=== PATIENT | male | born 1930 | race Caucasian/White ===

== ENCOUNTER 2018-07-23 22:39 | Inpatient (IN) | payer MEDICARE ==
[~2018-07-23] VITALS: Ht 175.3 cm; Wt 64.0 kg
--- NOTE | 2018-07-23 23:45 | NUR ---
DAUGHTERS AT BEDSIDE. PT AROUSES ON TACTILE STIMULATION. BS CHECKED 117. DR NOTIFIED.. OK TO GIVE SANDWICH. PT GIVEN SANDWICH AND MILK.
[2018-07-23 23:54] LABS: HEMATOCRIT 31.9 % (39.0-50.0); HEMOGLOBIN 10.1 g/dl (14.0-18.0); IMMATURE GRANULOCYTES 0.3 % (0.0-5.0); MEAN CELL VOLUME 98.2 fL CALC (80.0-100.0); MEAN CORPUSCULAR HGB 31.1 pG CALC (26.0-32.0); MEAN CORPUSCULAR HGB CONC 31.7 g/L CALC (32.0-36.0); NEUT# 7.67 thou/uL (1.82-7.42); RED BLOOD COUNT 3.25 mill/uL (4.70-6.10); RED CELL DISTRI WIDTH 14.1 % (11.5-15.5)
--- NOTE | 2018-07-23 23:55 | NUR ---
TO CT VIA STRETCHER
--- NOTE | 2018-07-23 23:55 | NUR ---
PT HAS EATEN 1/2 OF SANDWICH AND SOME MILK
[2018-07-24] VITALS (11 sets, daily range): BP systolic 97–159; BP diastolic 49–73
[2018-07-24 00:04] LABS: ALBUMIN 3.7 g/dL (3.2-5.0); BILIRUBIN, TOTAL 0.3 mg/dL (0.0-1.4); CREATININE 1.8 mg/dL (0.7-1.3); POTASSIUM 4.4 mmol/l (3.5-5.1); TOTAL PROTEIN 6.6 g/dL (6.3-8.2)
--- NOTE | 2018-07-24 00:14 | NUR ---
RETURNED FROM CT VIA STRETCHER
[2018-07-24] MEDS ORDERED: QUETIAPINE FUMA25 MG PO (00:22)
[2018-07-24] MEDS ORDERED: DONEPEZIL5 MG PO (00:23)
[2018-07-24] MEDS ORDERED: PRANDIN1 MG PO (00:23)
[2018-07-24] MEDS ORDERED: ATENOLOL25 MG PO (00:24)
[2018-07-24] MEDS ORDERED: SIMVASTATIN20 MG PO (00:25)
[2018-07-24] MEDS ORDERED: PIOGLITAZONE HC15 MG PO (00:25)
[2018-07-24] MEDS ORDERED: PANTOPRAZOLE SO40 MG PO (00:28)
[2018-07-24] MEDS ORDERED: BAYER ASPIRIN E81 MG PO (00:29)
[2018-07-24] MEDS ORDERED: NOVOLOG MIX SC (00:36)
[2018-07-24] MEDS ORDERED: NOVOLOG MIX100 U/ML SC (00:38)
[2018-07-24] MEDS ORDERED: PIOGLITAZONE HC30 MG PO (00:49)
--- NOTE | 2018-07-24 01:01 | NUR ---
BS RECHECK 65. NOTIFIED. WILL ADMIT PT. WILL ORDER D50
--- NOTE | 2018-07-24 01:45 | NUR ---
PT C/O LEFT KNEE PAIN. NO OBVIOUS DEFORMITY. HX OF KNEE REPLACEMENT [address] NOTIFIED. XRAY ORDER AND TYLENOL ORDERED.
--- NOTE | 2018-07-24 01:53 | NUR ---
URINE SENT TO LAB. PT MORE AROSEABLE.
[2018-07-24 01:56] LABS: URINE BILIRUBIN - DIPSTICK NEGATIVE (NEGATIVE); URINE BLOOD DIPSTICK NEGATIVE (NEGATIVE); URINE COLOR YELLOW; URINE GLUCOSE - DIPSTICK NEGATIVE (NEGATIVE); URINE KETONE NEGATIVE (NEGATIVE); URINE LEUK ESTERASE NEGATIVE (NEGATIVE); URINE NITRITE - DIPSTICK NEGATIVE (Negative); URINE PROTEIN - DIPSTICK 100 mg/dL (NEG-TRACE); URINE UROBILINOGEN - DIPSTICK 0.2 E.U./dL (0.2)
--- NOTE | 2018-07-24 02:03 | NUR ---
PORTABLE XRAY AT BEDSIDE
--- NOTE | 2018-07-24 02:21 | NUR ---
PT INCONT OF URINE. CHANGED BY DAUGHTER.
[2018-07-24 02:27] LABS: URINE BACTERIA FEW hpf; URINE WBC 0-2 WBC/hpf (0-5); URINE YEAST RARE hpf
--- NOTE | 2018-07-24 02:40 | NUR ---
PT POSITIONED ON RIGHT SIDE AND PERICREAM APPLIED TO BUTTOCKS. PT AROUSES EASILY
--- NOTE | 2018-07-24 03:18 | NUR ---
BS 145. NOTIFIED.
--- NOTE | 2018-07-24 03:41 | NUR ---
REPORT CALLED TO [place]/NURSE ON MED SURG.
--- NOTE | 2018-07-24 03:55 | NUR ---
SECOND FLOOR OPERATOR NOTIFIED OF CONCERN FOR HOURLY ACCUCKS
--- NOTE | 2018-07-24 04:15 | NUR ---
ATTEMPTED TO CALL REPORT TO ICU. SBAR RESENT
--- NOTE | 2018-07-24 04:30 | NUR ---
PT VOIDED IN URINAL WITH ASSIST. DIAPER CHANGED FOR SMALL AMT OF BROWN SMEAR. CLEANSED. DIAPER CREAM RE-APPLIED.
--- NOTE | 2018-07-24 04:51 | NUR ---
REPORT TO WYATT
--- NOTE | 2018-07-24 05:00 | NUR ---
BS 127.
--- NOTE | 2018-07-24 05:15 | NUR ---
TO ICU VIA STRETCHER. PT IS ALERT BUT DIORIENTED. P.WYakelin. NAD. VSS. BELONGINGS AND SHEETS TO ICU IN BAG.
--- NOTE | 2018-07-24 05:25 | NUR ---
PT. ARRIVES VIA STRETCHER FROM ER. ASSISTED WITH URINAL, BUT PT. UNABLE TO VOID AT THIS TIME. INTRODUCED TO SELF. PT. ORIENTED TO PERSON ONLY, WHICH IS NORMAL FOR HIM. PROVIDED WITH CALL LIGHT AND INSTRUCTIONS. RESPS EVEN AND UNLABORED. MOVED OVER FROM ER STRETCHER TO ICU BED VIA 3 NURSE COMPLETE ASSIST TRANSFER. VSS. REDNESS NOTED TO BUTTOCKS BILATERALLY. PATIENT IN NO DISTRESS. CALL LIGHT PLACED WITHIN REACH. LUNGS CTA.
--- NOTE | 2018-07-24 07:00 | NUR ---
RECIEVED REPORT FROM AMBER SCHNEIDER. ASSUMED PT CARE.
--- NOTE | 2018-07-24 07:30 | NUR ---
PT ALERT TO SELF, ABLE TO MAKE NEEDS KNOWN. PT DOES NOT UTILIZE CALL LIGHT AND NEEDS REORIENTED FREQ. PT SR ON TELEMETRY. RESPIRATIONS EVEN/UNLABORED, LS CLEAR THROUGHOUT. PT INC OF URINE, BED BATH AND LINEN CHANGE DONE. BARRIER CREAM APPLIED TO REDDENED AREAS ON BUTTOCKS.BRIEF IN PLACE WITH URINAL AT BEDSIDE. IV SITE TO LFA/SL. FLUSHED WITHOUT DIFFICULTY, NO S/S OF REDNESS OR INFILTRATION NOTED. PT BS 145, NO COVERAGE GIVEN. WILL MONITOR.
--- NOTE | 2018-07-24 08:00 | NUR ---
DIETARY ON UNIT, BREAKFAST TRAY SET UP.
--- NOTE | 2018-07-24 08:15 | NUR ---
FAMILY CALLED , AFTER VERIFYING CODE, UPDATE GIVEN.
--- NOTE | 2018-07-24 09:30 | NUR ---
PT ASSISTED WITH BSC AND URINAL. PERICARE GIVEN. CALL LIGHT IN REACH, STAFF MUST ANTICIPATE NEEDS. WILL MONITOR.
--- NOTE | 2018-07-24 11:02 | NUR ---
PT RESTING IN BED, COMPLAINING OF LEFT KNEE PAIN. NOTIFIED NICOLAS VELÁZQUEZ. NEW ORDERS RECIEVED.
--- NOTE | 2018-07-24 11:49 | NUR ---
ASSISTED PT WITH URINAL, TOLERATED WELL, CALL GARCIA WITHIN REACH.
--- NOTE | 2018-07-24 12:46 | NUR ---
PT ASSISTED TO BSC, SMALL BM. PT VERY RED ON BILAT BUTTOCKS, GOOD CHRISTINE CARE GIVEN. PT TOLERATED WELL. BARRIER CREAM APPLIED, PT PLACE ON RIGHT SIDE TO OFFLOAD AREA. WILL MONITOR.
--- NOTE | 2018-07-24 13:30 | NUR ---
PT ATTEMPTING TO GET OUT BED, PT REMINDED TO USE CALL LIGHT OR CALL FOR HELP. PT ASSISTED TO BSC, PT VERBALLY AGGRESIVE, STATED "YOU FUCKER, GET OUT OF HERE" TRIED REDIRECTING PT CALMLY REMINDED HE WAS IN ICU AND i COULD NOT LEAVE HIM D/T SAFETY. PT THEN STATED "YEAH, YOU DON'T LEAVE ANY BOYS ALONE, I'VE SEEN YOU SLUTING WITH ALL THE GUYS." i THEN STATED HE MUST HAVE ME CONFUSED WITH SOMEONE ELSE. HE THEN CALMED DOWN AND APOLOGIZED AND WAS AGGREEABLE TO CARE. PT ASSISTED BACK TO BED.
--- NOTE | 2018-07-24 14:10 | NUR ---
PT FOUND INC OF BOWEL. BED BATH GIVEN, LINEN CHANGED. PT AGREEABLE TO CARE.
[2018-07-24 15:20] LABS: CREATININE 1.7 mg/dL (0.7-1.3); POTASSIUM 4.8 mmol/l (3.5-5.1)
--- NOTE | 2018-07-24 15:30 | NUR ---
PT ATTEMPTING TO GET OOB, PT REORIENTED TO SAFETY CONSERNS, ASSISTED TO BSC, PT ASKED BY STAFF IF HE WOULD LIKE TO SIT UP IN [place]. PT DECLINED.BECOMING AGGITATED. PT OFFERED SNACK, PT DECLINED.THEN ASSISTED BACK TO BED.
--- NOTE | 2018-07-24 16:15 | NUR ---
PT FOUND PULLING OUT IV, PT ASKED TO STOP. PT BACAME VERY AGGRESIVE, MAKING A FIST AND SHAKING IT AT STAFF, STATED "I'LL KILL YOU BITCH". STAFF TRIED TO CALM PT, TRIED REDIRECTING. PT SUCCEEDED IN REMOVING IV, CATHETER INTACT. PT ASSISTED TO BSC, BOWEL INC NOTED AGAIN. PT CLEANED, GOOD PERICARE GIVEN.PT CONTINUED TO BE VERBALLY AGGRESIVE. PT AGAIN OFFERED SNACK, PT ACCEPTED. BED LINENS CHANGED. DR. FLORES NOTIFIED OF PT BEHAVIOR, NEW ORDERS RECIEVED, NURSING SUP. NOTIFIED. STAFF ARRANGED FOR 1 ON 1 SITTER. PT ASSISTED BACK TO BED.WILL MONITOR.
--- NOTE | 2018-07-24 17:00 | NUR ---
DIETARY ON UNIT, MEAL TRAY SET UP . PT CONTINUES TO BE VERBALLY AGGRESIVE. BED ALARM INTACT. WILL MONITOR.
--- NOTE | 2018-07-24 17:15 | NUR ---
PT ATTEMPTING TO GET OUT OF BED, ASSISTED TO BSC, THEN BACK TO BED.
--- NOTE | 2018-07-24 17:30 | NUR ---
ATTEMPTING TO GET OUT OF BED.ALARM SOUNDING. PT ASSISTED TO BSC, BACK TO BED.
--- NOTE | 2018-07-24 18:15 | NUR ---
PT RESTING IN BED, EYES CLOSED. SITTER IN PLACE. BED ALARM INTACT. WILL MONITOR.
--- NOTE | 2018-07-24 19:00 | NUR ---
REPORT FROM Roge DANIEL RN. ASSUMED PT. CARE.
--- NOTE | 2018-07-24 19:39 | NUR ---
PT. FOUND RESTING IN BED WITH EYES CLOSED AND SNORING RESPIRATIONS. RESPS EVEN AND UNLABORED. SKIN WARM AND DRY. AFEBRILE AT 98.4. SITTER AT BEDSIDE AT THIS TIME. LUNGS CTA. BOWEL SOUNDS PRESENT. PULSES INTACT THROUGHOUT. S1,S2 NOTED. SINUS RHYTHM. CALL LIGHT WITHIN REACH. WILL CONTINUE TO MONITOR.
--- NOTE | 2018-07-24 21:08 | NUR ---
BLADDER SCAN PERFORMED. >900 CC PER BLADDER SCANNER. CALLED AND NOTIFIED. DUE TO ELEVATED CREAT AND RETENTION, NEW ORDER RECEIVED FOR PROCTOR PLACEMENT. 16 F. PROCTOR PLACED, PT. SOMEWHAT UNCOOPERATIVE WITH PROCTOR PLACEMENT. 2 [address]ERSON ASS[address] REQUIRED TO PLACE PROCTOR. PROCTOR PLACED UNDER STERILE TECHNIQUE AND FASTENED TO RT. THIGH WITH LEG STRAP. PT. MEDICATED PER ORDERS.
--- NOTE | 2018-07-24 23:14 | NUR ---
PT. REMAINS RESTFUL WITH EYES CLOSED IN NO DISTRESS. RESPS REMAIN EVEN AND UNLABORED. PT. VOICES NO COMPLAINTS OR NEEDS AT THIS TIME. CALL LIGHT REMAINS WITHIN REACH. WILL CONTINUE TO ASSESS.
[2018-07-25] VITALS (10 sets, daily range): BP systolic 91–146; BP diastolic 44–63
--- NOTE | 2018-07-25 01:18 | NUR ---
PT. CONTINUES TO REST IN BED IN NO DISTRESS WITH SNORING RESPIRATIONS. CALL LIGHT REMAINS AT BEDSIDE. SITTER REMAINS AT BEDSIDE. VSS. WILL CONTINUE TO MONITOR.
--- NOTE | 2018-07-25 03:15 | NUR ---
PT. RESTING IN BED WITH EYES CLOSED. RESPS REMAIN EVEN AND UNLABORED. VSS. CALL LIGHT REMAINS WITHIN REACH.
--- NOTE | 2018-07-25 04:20 | NUR ---
LAB AT BEDSIDE FOR DRAW. PT. SOMEWHAT UNCOOPERATIVE WITH BLOOD DRAW. ONCE COMPLETE, PT. HAS CALMED DOWN. RESPS REMAIN EVEN AND UNLABORED. REMAINS AFEBRILE. VOICES NO COMPLAINTS OR NEEDS. WILL CONTINUE TO ASSESS.
[2018-07-25 05:31] LABS: HEMATOCRIT 32.8 % (39.0-50.0); HEMOGLOBIN 10.8 g/dl (14.0-18.0); MEAN CELL VOLUME 93.2 fL CALC (80.0-100.0); MEAN CORPUSCULAR HGB 30.7 pG CALC (26.0-32.0); MEAN CORPUSCULAR HGB CONC 32.9 g/L CALC (32.0-36.0); RED BLOOD COUNT 3.52 mill/uL (4.70-6.10); RED CELL DISTRI WIDTH 13.8 % (11.5-15.5)
[2018-07-25 05:48] LABS: BILIRUBIN, TOTAL 0.4 mg/dL (0.0-1.4); CREATININE 1.6 mg/dL (0.7-1.3); POTASSIUM 4.5 mmol/l (3.5-5.1); TOTAL PROTEIN 5.8 g/dL (6.3-8.2)
--- NOTE | 2018-07-25 06:00 | NUR ---
PT. CONTINUES TO BE RESTFUL WITH EYES CLOSED IN NO DISTRESS. RESPS REMAIN EVEN AND UNLAOBRED. VSS. CALL LIGHT REMAINS WITHIN REACH. WILL CONTINUE TO ASSESS.
--- NOTE | 2018-07-25 07:23 | NUR ---
pt resting in bed with eyes closed; no apparent distress noted; easily aroused; limited assessment completed at this time; pt becomes very agitated with this designer/writer/ limited assessment; pt alert to person only; confusion noted; no s.sx of pain noted; resp even and unlabored; anterior lungs noted coarse; designer/writer unable to assess post; skin color wnl; ra; moist sales team recruiter cough noted; hr reg; wk pedal pulses; no edema noted; abd soft with bs present; no bm noted per designer/writer; barrera to gravity draining clear yellow urine; cath strap intact; no iv access; designer/writer unable to assess buttocks/coccyx area; plan of care explained; again, pt uncooperative with care and very agitated; sitter at bedside for pt safety; will continue to monitor
--- NOTE | 2018-07-25 08:05 | NUR ---
awake in bed; easily aroused; offers no complaints; calm at this time; sitter present at bedside; sr on monitor; call light within reach; will continue to monitor
--- NOTE | 2018-07-25 08:43 | NUR ---
pt up out of bed per self; pt strongly encouraged to use call light for assistance; back to bed; bed alarm set for pt safety; will continue to monitor
--- NOTE | 2018-07-25 09:59 | NUR ---
Dr Castillo office called per this life underwriter; information provided to Sharifa Castillo now on phone; infomation/report given to Dr Castillo; Dr Castillo recommends barrera catheter for 2 weeks and to start Flomax; life underwriter informed pt currently receiving Flomax
--- NOTE | 2018-07-25 10:06 | NUR ---
resting in bed with eyes closed; no apparent distress noted; sr on monitor; sitter present at bedside; will continue to monitor
--- NOTE | 2018-07-25 10:40 | NUR ---
family present at bedside; field underwriter has spoken with daughter Aimee in great detail; daughter explained to this field underwriter, pt had a recent episode 5 weeks ago and was admitted to [facility] in [facility]; records to be obtained; code status clarified/ DNR formed obtained from Aimee and copy placed on chart; will continue to monitor
--- NOTE | 2018-07-25 11:04 | NUR ---
accucheck of 149; no insulin coverage required; Dr Nino present at bedside to assess pt and discuss plan of care; pt is very confused and agitated at times; barrera to gravity; per Dr Nino, pt will need placement; has spoken with sister Aimee and Caprice in great detail; will continue to monitor
--- NOTE | 2018-07-25 12:10 | NUR ---
resting in bed with eyes closed; sr on monitor; iv intact and patent; abt infusing without complication; sitter present at bedside for pt safety; call light within reach; will continue to monitor
--- NOTE | 2018-07-25 12:50 | NUR ---
tech at bedside for renal ultrasound
--- NOTE | 2018-07-25 13:42 | NUR ---
1330: Attempted to see the patient but the sitter states he is asleep and please not to wake him up. Will try again later.
--- NOTE | 2018-07-25 14:12 | NUR ---
awake in bed; continues with confusion; frequent reorientation required; sitter at bedside for safety; sr on monitor; barrera to gravity; iv intact; call light within reach; will continue to monitor
--- NOTE | 2018-07-25 14:40 | NUR ---
pt very confused and agitated; pt verbally abrusive to staff; pt pulling at and removing monitor attachments; sitter remains at bedside; pt attempting to become combative/pushing staff out of the way with arms while marketing copywriter attempting to medicate; ativan administered; pt states "That's it for you ass, you're fucking done; how about we all go to the back and deal this thing out"; staff attempting to calm pt/unsuccessful; staff x2 at bedside for pt safety;
--- NOTE | 2018-07-25 15:41 | NUR ---
PT at bedside
--- NOTE | 2018-07-25 15:56 | NUR ---
awake in bed; calm and cooperative at this time; iv intact; sr on monitor; barrera to gravity; sitter at bedside for pt safety; call light within reach; will continue to monitor
--- NOTE | 2018-07-25 16:31 | NUR ---
PATIENT SEEN FOR P.T. EVAL. EVAL AND GAIT DONE. AM-PAC 6 CLICK TEST SCORE WAS 14 WHICH INDICATES RECOMMENDED DISCHARGE TO A SNF/IRF. PATIENT'S SCORE MAY VARY DAILY BECAUSE OF HIS DEMENTIA.
--- NOTE | 2018-07-25 16:52 | NUR ---
report called to Med/Surg Maycol Sanders RN
--- NOTE | 2018-07-25 17:30 | NUR ---
pt transferred to med surg 281 via wc in stable condition; bedside report given to Maycol Sanders RN; sitter at bedside
--- NOTE | 2018-07-25 17:35 | NUR ---
PT CAME FROM ICU VIA WHEELCHAIR. 1X PERSON ASSIST PT TO THE BED. PT IS NOW RESTING IN HIS RIGHT SIDE. PT IS A&O X1 AND CONFUSED. SITTER IN ROOM. CALL LIGHT IN REACH.
--- NOTE | 2018-07-25 20:00 | NUR ---
PATIENT RESTING IN BED-CONFUSED AND RESTLESS WITH SITTER AT BED. PATIENT WITH PROCTOR CATH PATENT AND DRAINING CLEAR YELLOW URINE. SALINE LOCK INTACT TO RIGHT WRIST. ATTEMPT TO REORIENTED WAS UNSUCCESSFUL. BED ALARM IN PLACE. CALL LIGHT IN REACH. WILL CONT TO MONITOR.
--- NOTE | 2018-07-25 21:35 | NUR ---
PATIENT RESTING IN BED WITH SITTER AT BEDSIDE-REMAINS RESTLESS. PATIENT MEDICATED WITH ATIVAN 0.5MG IVP AND WITH ULTRAM FOR RESTLESSNESS AND PAIN. BED ALARM IN PLACE. CALL LIGHT IN REACH. WILL CONT TO MONITOR.
--- NOTE | 2018-07-25 23:12 | NUR ---
PATIENT RESTING IN BED-APPEARS SLEEPING AT THIS TIME WITH EYES CLOSED. RESP ARE EVEN AND UNLABORED. PROCTOR PATENT AND DRAINING CLEAR YELLOW URINE. SITTER AT BEDSIDE FOR PATIENT SAFETY. BED ALARM IN PLACE FOR PATIENT SAFETY. CALL LIGHT IN REACH. WILL CONT TO MONITOR.
--- NOTE | 2018-07-26 03:40 | NUR ---
PATIENT APPEARS SLEEPING AT THIS TIME-EYES CLOSED AND RESP ARE EVEN AND UNLABORED. PROCTOR CATH PATENT AND DRAINING QS CLEAR YELLOW URINE. BED ALARM IN PLACE FOR PATIENT SAFETY. CALL LIGHT IN REACH. WILL CONT TO MONITOR.
[2018-07-26 04:00] VITALS: BP 156/72
[2018-07-26 05:26] LABS: HEMOGLOBIN 11.3 g/dl (14.0-18.0); IMMATURE GRANULOCYTES 0.2 % (0.0-5.0); MEAN CELL VOLUME 93.8 fL CALC (80.0-100.0); MEAN CORPUSCULAR HGB 30.3 pG CALC (26.0-32.0); MEAN CORPUSCULAR HGB CONC 32.3 g/L CALC (32.0-36.0); NEUT# 7.16 thou/uL (1.82-7.42); RED BLOOD COUNT 3.73 mill/uL (4.70-6.10); RED CELL DISTRI WIDTH 13.6 % (11.5-15.5)
[2018-07-26 05:55] LABS: ALBUMIN 3.2 g/dL (3.2-5.0); BILIRUBIN, TOTAL 0.5 mg/dL (0.0-1.4); CREATININE 1.4 mg/dL (0.7-1.3); MAGNESIUM 1.6 mg/dL (1.6-2.3); POTASSIUM 4.8 mmol/l (3.5-5.1); TOTAL PROTEIN 6.2 g/dL (6.3-8.2)
--- NOTE | 2018-07-26 07:05 | NUR ---
REPORT RECEIVED FROM YAW. PT IS SLEEPING IN BED WITH NO S/S OF DISTRESS NOTED. SITTER IN ROOM.
[2018-07-26 07:47] VITALS: BP 138/72
--- NOTE | 2018-07-26 08:02 | NUR ---
SITTER IN ROOM. ASSESSMENT DONE. PT IS DROWSY. WHEN SPEAKING TO PT HE OPENS HIS EYES. PT WAS NOT ABLE TO TAKE ALL HIS AM MEDICATIONS HE KEEPING FALLING ASLEEP. NO S/S OF DISTRESS NOTED. 20 RW APPEARS HEALTHY. CALL LIGHT IN REACH.
--- NOTE | 2018-07-26 10:47 | NUR ---
Attempted treatment at 1030, nursing reported he was just waking up and they were trying to get him to eat breakfast at this time.
--- NOTE | 2018-07-26 12:22 | NUR ---
PT IS SLEEPING IN BED WITH NO S/S OF DISTRESS NOTED. SITTER IN ROOM.
--- NOTE | 2018-07-26 14:27 | NUR ---
Attempted treatment again he refused even with much encouragement. Nursing aware.
--- NOTE | 2018-07-26 15:16 | NUR ---
SITTER IN ROOM. PT IS CONFUSED STATING WHERE HIS MOM IS? JUSTA PT. NO S/S OF DISTRESS NOTED.
[2018-07-26 16:01] VITALS: BP 111/53
[2018-07-26 18:03] LABS: CHOLESTEROL HDL RATIO 2.7 (<4.4 (CALC))
[2018-07-26 19:45] VITALS: BP 113/54
--- NOTE | 2018-07-26 20:00 | NUR ---
PATIENT RESTING IN BED WITH HOB SLIGHTLY ELEVATED-EYES CLOSED AND APPEARS SLEEPING. RESP ARE EVEN AND UNLABORED. PROCTOR CATH PATENT AND DRAINING CLEAR YELLOW URINE. SALINE LOCK TO LEFT FOREARM INTACT AND APPEARS HEALTHY AT THIS TIME. SITTER AT BEDSIDE FOR PATIENT SAFETY. BED ALARM IN PLACE FOR PATIENT SAFETY. CALL LIGHT IN REACH. WILL CONT TO MONITOR.
--- NOTE | 2018-07-27 | NUR ---
PATIENT RESTING IN BED APPEARS SLEEPING WUTH EYES CLOSED. RESP ARE EVEN AND UNLABORED. SITTER AT BEDSIDE. BED ALARM IN PLACE FOR PATIENT SAFETY. CALL LIGHT IN REACH. WILL CONT TO MONITOR.
[2018-07-27 05:11] VITALS: BP 133/62
[2018-07-27 05:27] LABS: HEMATOCRIT 32.6 % (39.0-50.0); HEMOGLOBIN 10.8 g/dl (14.0-18.0); IMMATURE GRANULOCYTES 0.3 % (0.0-5.0); MEAN CELL VOLUME 92.6 fL CALC (80.0-100.0); MEAN CORPUSCULAR HGB 30.7 pG CALC (26.0-32.0); MEAN CORPUSCULAR HGB CONC 33.1 g/L CALC (32.0-36.0); NEUT# 7.09 thou/uL (1.82-7.42); RED BLOOD COUNT 3.52 mill/uL (4.70-6.10); RED CELL DISTRI WIDTH 13.3 % (11.5-15.5)
[2018-07-27 05:49] LABS: ALBUMIN 3.1 g/dL (3.2-5.0); BILIRUBIN, TOTAL 0.5 mg/dL (0.0-1.4); CREATININE 1.5 mg/dL (0.7-1.3); POTASSIUM 4.3 mmol/l (3.5-5.1); TOTAL PROTEIN 5.9 g/dL (6.3-8.2)
--- NOTE | 2018-07-27 06:25 | NUR ---
PATIENT RESTING IN BED WITH SITTER AT BEDSIDE. AWAKE ALERT AND CONFUSED. C/O LEFT KNEE AND BACK PAIN-PATIENT MEDICATED WITH ULTRAM 50MG CRUSHED IN APPLESAUCE. PROCTOR PATENT AND DRAINING YELLOW URINE. SAFETY PRECAUTIONS REINFORCED. CALL LIGHT IN REACH. WILL CONT TO MONITOR.
--- NOTE | 2018-07-27 07:00 | NUR ---
SHIFT CHANGE REPORT, PT AWAKE AND ALERT, DISORIENTED AND CONFUSED, REFUSED X-RAY THIS AM REPORTED BY HS RN BUT AGREED TO HAVE IT DONE NOW, ASSISTED TO W/C AND TRANSPORTED OFF UNIT BY SITTER, RETURNED AND SETTLED IN BED, SITTER AT BEDSIDE, WILL CONTINUE TO MONITOR.
[2018-07-27 09:21] VITALS: BP 102/54
[2018-07-27 11:51] VITALS: BP 112/51
--- NOTE | 2018-07-27 12:15 | NUR ---
SITTING UPRIGHT IN BED AT THIS TIME HAVING MEAL, DENIES PAIN, EATING WELL, SITTER AT BEDSIDE.
--- NOTE | 2018-07-27 14:18 | NUR ---
ATTEMPTED THERAPY WITH PATIENT SPENDING 10 MINUTES ENCOURAGING HIM TO WALK WITH THE THERAPIST. HE KEPT REFUSING. THE SITTER STATES HE DID WALK TO THE BATHROOM ONCE TODAY WITH ASSIST BUT REFUSES MANY THINGS. WILL ATTEMPT AGAIN TOMORROW. UNABLE TO COMPLETE 6 CLICK TEST BECAUSE OF REFUSAL.
--- NOTE | 2018-07-27 14:21 | NUR ---
PHYSICAL THERAPY DONE WITH James. SHE RECEIVED T.EX AND NEUROMUSCULAR DONE FOR 25 MINUTES. TAPPING, PROM AND AA ROM. LEFT LE REMAINS FLACCID. RIGHT LE SHOWING A TRACE OF ACTIVE MOVEMENT. SHE WILL TRY TO ASSIST WITH MOVEMENTS OCCAS WITH RIGHT LE AFTER TAPPING AND VERBAL INSTRUCTION. UNABLE TO FLEX LEFT KNEE THE PATIENT RESPONDS WITH FROWNING AND GRIMACING AND SAYING OUCH WITH EVEN THE SMALLEST KNEE FLEXION. SHE COOP MINAMILLY WITH ACTIVE CERVICAL ROM. SHE APPEARED TO TOLERATE TREATMENT WELL AND WAS LEFT COMFORTABLE.
--- NOTE | 2018-07-27 16:00 | NUR ---
RESTING CALMLY IN BED, HAS NOT ATTEMPTED TO GET OOB, NOT ANXIOUS, COMPLIANT WITH TAKING MEDS ORALLY AND WITHOUT DIFFICULTY, SITTER D/C, BED ALARM IN ACTIVATED.
[2018-07-27 17:20] VITALS: BP 109/49
--- NOTE | 2018-07-27 18:26 | NUR ---
VERY CONFUSED AT THIS TIME, REMOVED IV CATHETER, ASKING TO CUT OFF ARM BAND NOW BEFORE HE GOES AND BUYS A KNIFE AND CUT IT OFF HIMSELF, HE BIT OFF BAND AND NOW HE IS CALM.
--- NOTE | 2018-07-27 18:45 | NUR ---
RECEIVED PATIENT IN MID-FOLWERS POSITION, AWAKE. PT ORIENTED TO PERSON ONLY. PT SPEAKS IN FRAGMENTED SENTENCES OFTEN STATING HE FORGOT WHAT HE WAS GOING TO SAY. PT CALM AT THIS TIME. FOLLOWS SOME INSTRUCTION SUCH TAKING IN A DEEP BREATH HOWEVER WILL NOT TURN OVER ENTIRELY TO ASSESS SKIN CONDITION TO COCCYX. PERRLA AT 2MM. SKIN WARM AND DRY, LOOSE, FRAGILE. HEART SOUNDS REGULAR. BREATH SOUNDS WITH LATE EXPIRATORY RALES TO RIGHT SIDE, LEFT CLEAR. SATS 97% ON ROOM AIR, NO COUGH. ABDOMEN SOFT, BOWEL SOUNDS ACTIVE. PERIPHERAL PULSES PALPABLE, PEDAL PULES WEAK. PROCTOR DRAINING CLEAR LIGHT YELLOW URINE. PT OCCASIONALLY ATTEMPTING TO PULL AT PROCTOR CATH. TAKING SIPS OF WATER. DENIES ANY NEEDS. SITTING AT BEDSIDE WITH PATIENT.
[2018-07-27 20:28] VITALS: BP 114/50
--- NOTE | 2018-07-27 21:27 | NUR ---
PT RESTING ON RIGHT SIDE WITH EYES CLOSED. AROUSES EASY TO VERBAL STIMULI. PT TO HS MEDICATION HOWEVER REFUSED HS SNACK AT THIS TIME. 1 UNIT OF INSULIN NOT GIVEN AT THIS TIME. WILL REASSESS IF PATIENT AGREES TO TAKE HS SNACK.
--- NOTE | 2018-07-27 22:24 | NUR ---
PT WITH EYES CLOSED. SNORING AT TIMES. OCCASIONAL MOIST COUGH. NO SIGNS OF DISTRESS.
--- NOTE | 2018-07-28 00:45 | NUR ---
PT CONTINUES TO REST WITH EYES CLOSED. RESP EASY. OCCASIONALLY TURNS SELF FROM BACK TO RIGHT SIDE. NO SIGNS OF DISTRESS. SITTER AT BEDSIDE.
[2018-07-28 05:14] VITALS: BP 124/53
[2018-07-28 05:52] LABS: HEMATOCRIT 34.3 % (39.0-50.0); HEMOGLOBIN 11.4 g/dl (14.0-18.0); IMMATURE GRANULOCYTES 0.3 % (0.0-5.0); MEAN CELL VOLUME 92.2 fL CALC (80.0-100.0); MEAN CORPUSCULAR HGB 30.6 pG CALC (26.0-32.0); MEAN CORPUSCULAR HGB CONC 33.2 g/L CALC (32.0-36.0); NEUT# 6.21 thou/uL (1.82-7.42); RED BLOOD COUNT 3.72 mill/uL (4.70-6.10); RED CELL DISTRI WIDTH 13.3 % (11.5-15.5)
[2018-07-28 06:06] LABS: CREATININE 1.5 mg/dL (0.7-1.3); POTASSIUM 4.4 mmol/l (3.5-5.1)
[2018-07-28 07:44] VITALS: BP 128/53
--- NOTE | 2018-07-28 07:50 | NUR ---
REPORT RECEIVED FROM AMBER TIDWELL. PT SITTING UPRIGHT IN BED. BEING ASSISTED W/ EATING BREAKFAST BY MIKE DE JESUS CNA. PT. COMPLIANT W/ ASSESSMENT AND MEDICATION ADMINISTRATION. DENIES PAIN. REPORTING OF CONCERNS ENCORUAGED.
--- NOTE | 2018-07-28 09:00 | NUR ---
DR. SEGOVIA IN TO SEE PT.
--- NOTE | 2018-07-28 09:39 | NUR ---
PATIENT SAT IN RECLINER FOR 45 MINUTES. PATIENT REQUESTED TO GET BACK N BED. PATIENT BACK IN BED THEN FELL ASLEEP.
--- NOTE | 2018-07-28 12:30 | NUR ---
PT EDUCATED ON PURPOSE OF IV AND IV ABX. PT RESISTANT. SITTER AT BEDSIDE TO ASSIST WITH COMPLIANCE.
[2018-07-28 15:30] VITALS: BP 106/52
--- NOTE | 2018-07-28 17:00 | NUR ---
PT NONCOMPLIANT W/ INSTRUCTIONS NOT TO PULL ON IVS AND PROCTOR. RESISTANT TO REORIENTING. IVS REMOVED BY PT. GAUZE APPLIED TO SITE. DR. SEGOVIA NOTIFIED OF PT'S AGITATION. ORDER FOR HALDOL IM X 1 AND TO RESTART SEROQUEL PO.
--- NOTE | 2018-07-28 19:10 | NUR ---
PT ASLEEP AT THIS TIME, SITTER AT BEDSIDE.
[2018-07-28 19:14] VITALS: BP 120/62
--- NOTE | 2018-07-28 20:58 | NUR ---
PT MEDICATED ORDERS PROVIDE. SITTER AT BEDSIDE AND BED ALARM ON. PT ASSESSED, LUNG SOUNDS ARE CLEAR, ABD FIRM NON-TENDER W/ACTIVE BOWEL SOUNDS. PROCTOR CATHETER DRAINING TO GRAVITY. WILL CONTINUE TO MONITOR
--- NOTE | 2018-07-29 03:00 | NUR ---
PT SLEEPING AT THIS TIME, NO S/O DISTRESS NOTED. ATTEMPTS WERE MADE TO OBTAIN IV ACCESS W/ASSISTANCE OF SITTER, PT STARTED BECOMING AGITATED AND REFUSED TO ALLOW HIS ARM FREE FOR IV ACCESS. WILL ATTEMPT THIS AGAIN LATER. AIDE AT BEDSIDE AND BED ALARM ON.
[2018-07-29 04:56] VITALS: BP 123/47
--- NOTE | 2018-07-29 07:00 | NUR ---
PT RESTING IN BED, SITTER AT BEDSIDE. DAUGHTER AT BEDSIDE. PT CONTINUES TO REFUSE IV ACCESS. PT YELLING AT DAUGHTER. PROCTOR REMAINS PATENT, DRAINING TO BSD. CLEAR YELLOW URINE. RESPIRATIONS EVEN/UNLABORED. CALL LIGHT IN REACH. WILL MONITOR.
--- NOTE | 2018-07-29 08:00 | NUR ---
DR. SEGOVIA AT BEDSIDE FOR ASSESSMENT AND TO DISCUSS PLAN OF CARE. AWARE OF PT REFUSAL FOR IV, IV MEDICATIONS TO BE CHANGED TO PO. SITTER REMAINS AT BEDSIDE. WILL MONITOR.
--- NOTE | 2018-07-29 11:30 | NUR ---
DIETARY ON UNIT, LUNCH TRAY SET UP, SITTER REMAINS AT BEDSIDE. PT OFFERS NO COMPLAINTS AT THIS TIME.WILL MONITOR.
--- NOTE | 2018-07-29 11:44 | NUR ---
Therapy was focused on gait training and ther. activities. Mr. Sumner was resting in bed supine. Radha said i could wake up for therapy. Pt. agreed to participate in therpay, Supine to sit ( Mod A) w/ VC for correct hand placemrnt to sit, Sit to Stand (Min A) VC for correct hand placement to push off of bed and not walker. Ambulated 25 ft. x 2 (CGA) pt. has short steps as he ambulates. Stand to sit (Min A) VC for handplacement on bed as he descends to a seated position. Sit to supine(Mod A) with pt. needing help to lay down and swing legs over bedside. Pt. was in supine position along with tray table and call bauman by his side. Radha was present during therapy and as exiting room.
[2018-07-29 15:58] VITALS: BP 107/56
--- NOTE | 2018-07-29 16:00 | NUR ---
PT RESTING IN BED, SITTER AT BEDSIDE. PT OFFERS NO COMPLAINTS AT THIS TIME.
[2018-07-29 18:53] VITALS: BP 111/54
--- NOTE | 2018-07-29 22:20 | NUR ---
CLINICAL NUTRITIONIST WAS IN TO GIVE PT MEDICATIONS. PT AWOKE, RESPONDED APPROPRIATELY, CLINICAL NUTRITIONIST AND SITTER EXPLAINED TO THE PT THAT WE WERE GOING TO BOOST HIM IN THE BED SO THAT HE IS ABLE TO SIT UP TO TAKE HIS PILLS, HE RESPONDED "OKAY," PT WAS BOOSTED W/OUT INCIDENT. HOB RAISED FOR PT AND PILLS EXPLAINED TO HIM OF WHAT HE WAS BEING GIVEN. CLINICAL NUTRITIONIST HANDED CUP OF PILLS TOWARD PT TO TAKE HE QUICKLY AND VIOLENTLY SLAPPED THE MEDICINE CUP AND WATER CUP OUT OF WRITERS HAND AND ACROSS THE ROOM. PILLS AND WATER CUP WERE FOUND,RECOVERED UNDER THE COUCH BENEATH THE WINDOW ON THE OTHER SIDE OF THE ROOM AND WASTED. WHEN ASKED WHY HE DID THIS PT RESPONDED, "JUST SEEMED LIKE SOMETHING I COULD DO." SITTER AT BEDSIDE AND BED ALARM ON PT. PT EYES ARE NOW CLOSED, LIGHTS OFF AND TV ON LOW.
--- NOTE | 2018-07-30 01:25 | NUR ---
PT APPEARS TO BE SLEEPING AT THIS TIME IN LOW FOWLERS POSITION W/LIGHTS OFF AND TV ON LOW. NO S/O DISTRESS AT THIS TIME. SITTER AT BEDSIDE.
--- NOTE | 2018-07-30 03:59 | NUR ---
SITTER ATTEMPTING TO GET V/S, BUT PT BECOMING MORE AGITATED AND THREATENING. WILL ATTEMPT V/S AT ANOTHER TIME. PT AT BEDSIDE AND PT IN BED W/BED ALARM ON.
[2018-07-30 08:39] VITALS: BP 104/59
--- NOTE | 2018-07-30 08:45 | NUR ---
ASSESSMENT DONE. PT IS CONFUSED. ASKED PT NAME. PT STATED I DON'T HAVE PAIN IN MY KNEE. NO S/S OF DISTRESS NOTED. PROCTOR IS PATENT WITH YELLOW URINE. NO IV SITE. SITTER IN ROOM. CALL LIGHT IN REACH. DR. SEGOVIA AT BEDSIDE TO DISCUSS POC.
--- NOTE | 2018-07-30 12:07 | NUR ---
PT IS CONFUSED. PT EATING HIS LUNCH WITH NO S/S OF DISTRESS NOTED. SITTER IN ROOM.
[2018-07-30 15:28] VITALS: BP 90/54
--- NOTE | 2018-07-30 15:30 | NUR ---
PT RESTING IN BED WITH NO S/S OF DISTRESS NOTED. ASKED PT IF HE HAD PAIN. PT STATED YOU ARE NOT GOING TO GET BLOOD FROM ME. SITTER IN ROOM.
--- NOTE | 2018-07-30 17:38 | NUR ---
PT GETTING MAD STATED HE WANTS HIS ARM BAND CUT OFF. TRY TO REORIENT PT. PT STATED CUT IT OFF. I CUT IT OFF AND PLACE IT IN THE RAIL OF THE BED. PT IS NOW HAPPY.
--- NOTE | 2018-07-30 19:10 | NUR ---
BEDSIDE REPORT RECEIVED FROM DAY NURSE, PT IS IN BED NO S/O DISTRESS. SITTER AT BEDSIDE. NO S/O DISTRESS AT THIS TIME.
[2018-07-30 20:15] VITALS: BP 124/64
[2018-07-30 20:20] VITALS: BP 124/64
--- NOTE | 2018-07-30 20:26 | NUR ---
PT MEDICATED ORDERS PROVIDE, SITTER ASSISTING AT BEDSIDE. PT ASSESSED, LUNG SOUNDS CLEAR, ABD TENDER TO LOWER RIGHT QUADRANT, NO NOTED EDEMA AT THIS TIME. PT LOC TO SELF AND PARTIAL . NO S/O AGITATION AT THIS TIME, LIGHTS TURNED DOWN W/TV ON LOW. SITTER LEFT AT BEDSIDE. ARM BAND HAD PREVIOUSLY REMOVED BY PT AND ATTACHED TO BED NEXT TO PT, WHILE RECONCILIATION MACHINE OPERATOR WAS IN THE ROOM PT RIPPED ARM BAND FROM BED/SITTER PLACED ON BST.
--- NOTE | 2018-07-30 23:10 | NUR ---
MYSELF AND SITTER AT BEDSIDE, LIGHTS TURNED OFF AND TV ON LOW, PT STARTED UNCOVERING W/BLANKETS AND ATTEMPTING TO TUG ON PROCTOR CATHETER. WHEN ASKED IF PT WAS HOT HE RESPONDED "NO," WHEN ASKED WHERE HE WAS ATTEMPTING TO GO HE RESPONDED, "I DON'T KNOW." PT ASSISTED REPOSITIONING IN BED, COVERS BACK IN PLACE. PROCTOR CATHETER APPEARS PATENT, DRAINING CLEAR YELLOW URINE AND STRAP TO LUE IN PLACE. DENIES PAIN.
--- NOTE | 2018-07-30 23:28 | NUR ---
PT IN BED AWAKE W/SITTER AT BEDSIDE. NO S/O DISTRESS NOTED.
--- NOTE | 2018-07-31 05:00 | NUR ---
PT IS SLEEPING W/SITTER AT BEDSIDE. NO S/O DISTRESS NOTED.
[2018-07-31 05:15] VITALS: BP 139/71
--- NOTE | 2018-07-31 06:30 | NUR ---
PT APPEARS TO BE SLEEPING WITH EYES CLOSED; NO S/S OF DISTRESS NOTED.
--- NOTE | 2018-07-31 07:20 | NUR ---
REPOSITION PT IN BED, ASSIST X2; ASK PT IF I CAN OBTAIN HIS VITALS, PT STATES "I WILL KICK YOUR ASS OUT THAT DOOR" VITALS NOT OBTAINED. BED ALARM ACTIVE;
--- NOTE | 2018-07-31 08:05 | NUR ---
PT IS CONFUSED. PT REFUSED FOR US TO OBTAIN VS PT STATED OUT. PT NOT ALLOWING TO DO A FULL ASSESSMENT. NO IV SITE. SITTER IN ROOM. BED ALARM IN PLACE.
--- NOTE | 2018-07-31 09:08 | NUR ---
DR. SEGOVIA AT BEDSIDE TO ASSESS PT. NOTIFIED MD THAT PT IS REFUSING MEDICATIONS AND VS. MD STATED FINE AND LET HIM REST.
--- NOTE | 2018-07-31 09:20 | NUR ---
PT'S LAYING ON RT SIDE STILL SLEEPING; RESP EVEN AND UNLABORED; BED ALARM ACTIVE;
[2018-07-31 09:44] VITALS: BP 131/54
--- NOTE | 2018-07-31 09:46 | NUR ---
PT AWAKE, VITALS OBTAINED; NOW EATING BREAKFAST.
--- NOTE | 2018-07-31 10:10 | NUR ---
PT ATE 100% OF BREAKFAST; ASSIST TO BSC, HAD MOD, SOFT BM; PARTIAL BATH GIVEN; REFUSED TO SIT UP IN RECLINER; APPEARS TO BE CALM, FOLLOW COMMANDS;NOW BACK INTO BED; BED ALARM ACTIVE.
--- NOTE | 2018-07-31 11:06 | NUR ---
PT LAYING IN BED APPEARS TO BE SLEEPING AT THIS TIME; BED ALARM ACTIVE; NO SITTER REQUIRED; WILL CONTINUE TO MONITOR. CALL GARCIA IN REACH.
--- NOTE | 2018-07-31 12:05 | NUR ---
PT IS SLEEPING IN BED WITH NO S/S OF DISTRESS NOTED. BED ALARM IN PLACE.
--- NOTE | 2018-07-31 12:58 | NUR ---
PT'S APPEARS TO BE SLEEPING, RESP EVEN AND UNLABORED; BED ALARM ACTIVE; CALL GARCIA IN REACH.
--- NOTE | 2018-07-31 15:04 | NUR ---
PT SET OFF THE BED ALARM. PT STATED I'M GOING TO FIND MY MOM. REORIENT PT. PT SITTING IN THE SIDE OF THE BED SET PT UP WITH HIS LUNCH TRAY. BED ALARM IN PLACE.
--- NOTE | 2018-07-31 15:25 | NUR ---
PT SET OFF THE BED ALARM. ASSISTED PT TO SIT IN RECLINER. BED ALARM IN PLACE CALL LIGHT IN REACH. TOLD PT THAT DAUGHTER WAS HERE EARLIER BUT HE WAS SLEEPING.
--- NOTE | 2018-07-31 15:30 | NUR ---
BED ALARM GOING OFF, PT ASSISTED TO RECLINER; LEGS ELEVATED; LINEN CHANGE; ALARM ACTIVE; CALL GARCIA IN REACH.
[2018-07-31 15:38] VITALS: BP 129/58
--- NOTE | 2018-07-31 16:56 | NUR ---
PT SITTING UP IN BED, MEDICATED PER EMAR; TOLERATED WELL; PT KEPT TALKING "TODAY IS ONE DAY AND TOMORROW IS ANOTHER DAY. IT'S MY STOMACH AND I KNOW WHAT'S GOING ON. I'M GOING HOME TOMORROW" BED ALARM ACTIVE;
--- NOTE | 2018-07-31 17:34 | NUR ---
PT SITTING UP IN BED WITH HOB ELEVATED, APPEARS TO BE SLEEPING; BED ALARM ACTIVE.
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
[2018-07-31 19:51] VITALS: BP 123/63
--- NOTE | 2018-07-31 20:16 | NUR ---
PT MEDICATED ORDERS PROVIDE. PT IS PULLING AT PROCTOR CATHETER AND ATTEMPTING TO GET OUT OF BED. BED ALARM IS ON. PT OCCUPIED FOR A SMALL AMOUNT OF TIME W/DIVERSION OF "WORKING ON" BP CUFF AND PHONE. THIS APPEARED TO CALM HIM FOR A SMALL AMOUNT OF TIME.
--- NOTE | 2018-07-31 21:31 | NUR ---
PT MEDICATED ORDERS PROVIDE. PT APPEARS CALM, IS SITTING UP W/EYE CLOSED AND TV ON. BED ALARM ON.
--- NOTE | 2018-08-01 03:46 | NUR ---
PT IS SLEEPING AT THIS TIME. NO S/O DISTRESS NOTED. BED ALARM ON. PROCTOR CATHETER PATENT AND DRAINING CLEAR YELLOW URINE, STRAP IN PLACE TO LUE
[2018-08-01 05:26] VITALS: BP 144/73
--- NOTE | 2018-08-01 07:00 | NUR ---
REPORT RECEIVED FROM AMBER NOEL;PT APPEARS TO BE SLEEPING IN SEMI FOWLERS POSITION WITH FAMILY MEMBER AT BEDSIDE;RESPIRATIONS APPEAR EVEN AND UNLABORED ON RA;NO S/S OF DISTRESS NOTED;ACCUCHECK 114, NO COVERAGE NEEDED AT THIS TIME;FALL PRECAUTIONS IN PLACE WITH BED IN THE LOWEST POSITION AND BED ALARM ON FOR SAFETY;CALL LIGHT IN REACH;WILL CONTINUE TO MONITOR
--- NOTE | 2018-08-01 08:16 | NUR ---
AT BEDSIDE DISCUSSING POC WITH PATIENT AND FAMILY MEMBER.
[2018-08-01 08:24] VITALS: BP 132/64
--- NOTE | 2018-08-01 08:25 | NUR ---
PT RESTING IN BED WITH FAMILY AT BEDSIDE,ALERT TO PERSON ONLY;RE-ORIENTED NEEDED;VS OBTAINED AND ASSESSMENT COMPLETED;PT DENIES ANY CURRENT PAIN,PAIN SCALE AND REPORTING EDUCATED;RESPIRATIONS EVEN AND UNLABORED ON RA;ABDOMEN DISTENDED/SOFT ON PALPATION AND ACTIVE IN ALL 4 QUADRANTS, LAST BM 07/31/18;PROCTOR CATHETER PATENT DRAINING CLEAR/YELLOW URINE WITH EASE,PROCTOR REMOVED PER ;SKIN INTACT;NO IV SITE,MD AWARE;PT DENIES ANY ADDITIONAL NEEDS AND IS ENCOURAGED TO CALL FOR ASSISTANCE IF NEEDED;PO FLUIDS PROVIDED;FALL PRECAUTIONS IN PLACE WITH BED ALARM ON FOR SAFETY;CALL LIGHT IN REACH;WILL CONTINUE TO MONITOR
--- NOTE | 2018-08-01 10:56 | NUR ---
Pt seen this am for treatment. Pt stated he lives at home and can not if he lives with any one. Pt was cooperative with treatment. He moved supine to sit with supervision and sit to and from stand with supervision and vc for safety. Pt ambulated 2 x 40 ' with CGA. Standing and sitting ex were performed. Pt able to stand with eyes closed x 20 sec without LOB. Transfers required SBA for safety issues. [facility]. Pt left in bed with alarms in place.
--- NOTE | 2018-08-01 11:30 | NUR ---
PT APPEARS TO BE SLEEPING IN SUPINE POSITION,WAKES EASILY TO VERBAL STIMULI;RESPIRATIONS EVEN AND UNLABORED ON RA;PT DENIES ANY CURRENT PAIN OR NEEDS;STILL AWAITING PT TO VOID AFTER CATHETER REMOVAL,ENCOURAGED PO FLUIDS; ACCUCHECK 206, PT COVERED WITH NOVOLOG SLIDING SCALE PER ORDER;ALL SAFETY PRECAUTIONS REINFORCED WITH BED ALARM ON FOR SAFETY;CALL LIGHT IN REACH;WILL CONTINUE TO MONITOR
--- NOTE | 2018-08-01 15:20 | NUR ---
PT RESTING IN SEMI FOWLERS POSITION;RESPIRATIONS EVEN AND UNLABORED ON RA;PT AGITATED AT TIMES,BUT EASILY RE-ORIENTED;PT DENIES ANY CURRENT PAIN OR NEEDS;ALL SAFETY PRECAUTIONS REINFORCED WITH BED ALARM ON FOR SAFETY;ENCOURAGED TO CALL FOR ASSISTANCE IF NEEDED;CALL LIGHT IN REACH;WILL CONTINUE TO MONITOR
[2018-08-01 15:42] VITALS: BP 115/52
--- NOTE | 2018-08-01 17:48 | NUR ---
AT BEDSIDE DISCUSSING POC WITH PT AND FAMILY MEMBERS.
--- NOTE | 2018-08-01 19:00 | NUR ---
RECEIVED REPORT FROM NURSE ANTUNEZ, PATIENT WAS RESTLESS, KEEPS LOOKING FOR , CALLED DAUGHTER DELANEY AND SPOKE TO PATIENT. PATIENT SETTLED DOWN, CURRENTLY AMBULATING HALLWAY WITH ASSIST.
[2018-08-01 19:15] VITALS: BP 107/48
--- NOTE | 2018-08-01 20:00 | NUR ---
PATIENT SITTING IN CHAIR ALERT TO SELF ONLY, DENIES PAIN AND DISCOMFORT, PLEASANT TO TALK TO ABLE TO REDIRECT, CURRENLTY EATING PUDDING AT THIS TIME, BED ALRM IN PLACE.
--- NOTE | 2018-08-02 00:45 | NUR ---
PATIENT SET OFF BED ALARM, PATIENT STATED NEEDS TO PEE, ASSISTED TO THE TOILET.AND BACK IN BED.
--- NOTE | 2018-08-02 01:21 | NUR ---
PATIENT APPEARS TO BE SLEEPING WITH EYES CLOSED, WITH EVEN UNLABORED BREATHING CALL LIGHT AT REACH.
--- NOTE | 2018-08-02 03:42 | NUR ---
PATIENT APPEARS TO BE SLEEPING NO DISCOMFORTS NOTED WITH EVEN UNLABORED BREATHING, BED ALARM IN PLACE.
[2018-08-02 05:40] VITALS: BP 133/59
--- NOTE | 2018-08-02 07:00 | NUR ---
REPORT RECEIVED FROM AMBER JACOBSON;PT APPEARS TO BE SLEEPING IN SUPINE POSITION;NO S/S OF DISTRESS NOTED;RESPIRATIONS EVEN AND UNLABORED ON RA;FALL PRECAUTIONS IN PLACE WITH BED ALARM ON FOR SAFETY;BED IN THE LOWEST POSITION WITH CALL LIGHT IN REACH;WILL CONTINUE TO MONITOR
[2018-08-02 07:17] LABS: HEMATOCRIT 35.9 % (39.0-50.0); HEMOGLOBIN 11.8 g/dl (14.0-18.0); IMMATURE GRANULOCYTES 0.4 % (0.0-5.0); MEAN CELL VOLUME 92.8 fL CALC (80.0-100.0); MEAN CORPUSCULAR HGB 30.5 pG CALC (26.0-32.0); MEAN CORPUSCULAR HGB CONC 32.9 g/L CALC (32.0-36.0); NEUT# 6.07 thou/uL (1.82-7.42); RED BLOOD COUNT 3.87 mill/uL (4.70-6.10); RED CELL DISTRI WIDTH 13.2 % (11.5-15.5)
[2018-08-02 07:49] LABS: CREATININE 1.5 mg/dL (0.7-1.3); POTASSIUM 4.5 mmol/l (3.5-5.1)
[2018-08-02 08:04] VITALS: BP 137/71
--- NOTE | 2018-08-02 08:05 | NUR ---
AT BEDSIDE DISCUSSING POC.
--- NOTE | 2018-08-02 08:05 | NUR ---
PT RESTING IN SUPINE POSITION, CONFUSED TO TIME AND PLACE;ATTEMPTED TO RE-ORIENT UNSUCCESSFUL;VS OBTAINED AND ASSESSMENT COMPLETED;PT DENIES ANY CURRENT PAIN OR DISCOMFORTS,PAIN SCALE AND REPORTING EDUCATED;RESPIRATIONS EVEN AND UNLABORED ON RA;ABDOMEN SOFT ON PALPATION AND ACTIVE IN ALL 4 QUADRANTS;WEAK PEDAL PULSES;SKIN INTACT;NO IV SITE MD AWARE;ACCUCHECK 166;PO FLUIDS ENCOURAGED;PT DENIES ANY ADDITIONAL NEEDS AND IS ENCOURAGED TO CALL FOR ASSISTANCE IF NEEDED;BED ALARM ON FOR PT SAFETY;CALL LIGHT IN REACH;WILL CONTINUE TO MONITOR
--- NOTE | 2018-08-02 08:57 | NUR ---
Pt. was found sitting and in agreement to proceed with treatment this morning consisting of therapeutic exercises and gait training. In sitting pt. performed seated heel-toe raises, marching and knee extension x 20 repetitions. Sit to stand with supervision followed by gait training 2 x 15 feet using RW and with light CGA x1. Pt. required v.c.'s for safety awareness, to slow down and for completing turns. Pt. requested to get back in bed and was able to complete with min assist. Pt. left resting comfortably in bed without questions/concerns. Bed alarm in place and functioning. Call bauman reviewed and left within reach. AM-PAC 6 clicks score unchanged.
--- NOTE | 2018-08-02 11:55 | NUR ---
PT RESTING IN SUPINE POSITION EATING LUNCH WITH FAMILY AT BEDSIDE;RESPIRATIONS EVEN AND UNLABORED ON RA;PT DENIES ANY CURRENT PAIN OR NEEDS;ACCUCHECK 176, COVERED WITH 1 UNIT OF NOVOLOG PER ORDER;PT DENIES ANY ADDITIONAL NEEDS;FALL PRECAUTIONS IN PLACE WITH BED ALARM ON FOR SAFETY;CALL LIGHT IN REACH;WILL CONTINUE TO MONITOR
[2018-08-02 15:15] VITALS: BP 101/60
--- NOTE | 2018-08-02 15:30 | NUR ---
PT OOB RESTING IN RECLINER;RESPIRATIONS EVEN AND UNLABORED ON RA;PT DENIES ANY CURRENT PAIN OR DISCOMFORTS;ASSESSMENT REMAINS UNCHANGED AT THIS TIME;FALL PRECAUTIONS IN PLACE WITH BED ALARM ON FOR SAFETY;CALL LIGHT IN REACH;WILL CONTINUE TO MONITOR
--- NOTE | 2018-08-02 19:00 | NUR ---
RECEIVED REPORT FROM NURSE HARMONY, PATIENT SITTING IN BED, DENIES PAIN OR DISCOMFORT EVEN UNLABORED BREATHING CALL LIGHT AT REACH, BED ALARM IN PLACE.
[2018-08-02 19:37] VITALS: BP 108/66
--- NOTE | 2018-08-02 20:00 | NUR ---
PATIENT ALERT TO SELF ONLY, PLEASANT AT THIS TIME, SETS OFF BED ALARM, WITH EVEN UNLABORED BREATHING DENIES PAIN OR DISCOMFORT, ASSISTED PT TO TOILET, AND ASSISTED BACK IN BED.
--- NOTE | 2018-08-02 23:30 | NUR ---
PATIENT AWAKE AT THIS TIME, ASSISTED PT TO BATHROOM, AND ASSISTED BACK IN BED, CURRENTLY RESTING IN BED, BED ALARM IN PLACE.
--- NOTE | 2018-08-03 04:31 | NUR ---
PATIENT AWAKE ASSISTED TO TOILET, AND ASSISTED BACK IN BED, BED ALARM IN PLACE.
[2018-08-03 05:29] VITALS: BP 111/64
--- NOTE | 2018-08-03 07:00 | NUR ---
REPORT RECEIVED FROM AMBER JACOBSON;PT APPEARS TO BE SLEEPING IN SUPINE POSITION;NO S/S OF DISTRESS NOTED;RESPIRATIONS EVEN AND UNLABORED ON RA;ACCUCHECK 87, NO COVERAGE NEEDED AT THIS TIME;ALL FALL PRECAUTIONS IN PLACE WITH BED IN THE LOWEST POSITION AND BED ALARM ON FOR SAFETY;CALL LIGHT IN REACH;WILL CONTINUE TO MONITOR
[2018-08-03 07:31] LABS: HEMATOCRIT 35.7 % (39.0-50.0); HEMOGLOBIN 11.2 g/dl (14.0-18.0); IMMATURE GRANULOCYTES 0.3 % (0.0-5.0); MEAN CELL VOLUME 96.5 fL CALC (80.0-100.0); MEAN CORPUSCULAR HGB 30.3 pG CALC (26.0-32.0); MEAN CORPUSCULAR HGB CONC 31.4 g/L CALC (32.0-36.0); NEUT# 5.52 thou/uL (1.82-7.42); RED BLOOD COUNT 3.7 mill/uL (4.70-6.10); RED CELL DISTRI WIDTH 13.4 % (11.5-15.5)
[2018-08-03 07:54] LABS: ALBUMIN 3.3 g/dL (3.2-5.0); BILIRUBIN, TOTAL 0.3 mg/dL (0.0-1.4); CREATININE 1.6 mg/dL (0.7-1.3); POTASSIUM 4.6 mmol/l (3.5-5.1); TOTAL PROTEIN 6.3 g/dL (6.3-8.2)
[2018-08-03 07:58] VITALS: BP 145/70
--- NOTE | 2018-08-03 08:00 | NUR ---
PT RESTING IN BED EATING BREAKFAST, ALERT TO SELF ONLY;VS OBTAINED AND ASSESSMENT COMPLETED;PT DENIES ANY CURRENT PAIN OR DISCOMFORTS,PAIN SCALE AND REPORTING EDUCATED;RESPIRATIONS EVEN AND UNLABORED ON RA;ABDOMEN SOFT ON PALPATION AND ACTIVE IN ALL 4 QUADRANTS;SKIN INTACT;NO IV SITE.MD AWARE;AWAITING PLACEMENT AT THIS TIME;FALL PRECAUTIONS IN PLACE WITH BED ALARM ON FOR SAFETY;ENCOURAGED PT TO CALL FOR ASSISTANCE IF NEEDED;CALL LIGHT IN REACH;WILL CONTINUE TO MONITOR
--- NOTE | 2018-08-03 08:34 | NUR ---
AT BEDSIDE DISCUSSING POC.
--- NOTE | 2018-08-03 10:40 | NUR ---
Pt was seen for gait training x 15 mins. STS indep. with 1 attempt, no retropulsion noted today. Pt then ambulated in the hallway ~80 ft x 2 with RW and CGA. No instability noted. Pt returned to his room and requested to sit in the recliner. Fall string reattached to gown with call bauman on his lap. Left the door open. Advised pt to call the nurse for assistance on anything. Fall precaution reinforced. AMPAC unchanged.
--- NOTE | 2018-08-03 11:20 | NUR ---
PT APPEARS TO BE SLEEPING WITH FAMILY AT BEDSIDE;RESPIRATIONS EVEN AND UNLABORED ON RA;NO S/S OF DISTRESS NOTED;ASSESSMENT REMAINS UNCHANGED AT THIS TIME;FALL PRECAUTIONS IN PLACE WITH BED ALARM ON FOR SAFETY;CALL LIGHT IN REACH;WILL CONTINUE TO MONITOR
[2018-08-03 15:00] VITALS: BP 115/61
--- NOTE | 2018-08-03 16:20 | NUR ---
PT RESTING IN SEMI FOWLERS POSITION;RESPIRATIONS EVEN AND UNLABORED ON RA;NO S/S OF DISTRESS NOTED;PT DENIES ANY ADDITIONAL NEEDS AT THIS TIME AND IS ENCOURAGED TO CALL FOR ASSISTANCE IF NEEDED;FALL PRECAUTIONS IN PLACE WITH BED ALARM ON FOR SAFETY;CALL LIGHT IN REACH;WILL CONTINUE TO MONITOR
--- NOTE | 2018-08-03 19:10 | NUR ---
BEDSIDE REPORT RECEIVED FROM DAY NURSE. PT IN BED TALKATIVE W/BED ALARM ON. PT ASSISTED TO RESTROOM AND BACK TO BED WHILE IN THE ROOM WITH PT FOR REPORT. PT LEFT IN BED W/BED ALARM ON.
[2018-08-03 20:45] VITALS: BP 138/60
--- NOTE | 2018-08-03 22:41 | NUR ---
PT MEDICATED ORDERS PROVIDE. BED ALARM ON
--- NOTE | 2018-08-03 23:45 | NUR ---
PT IS SLEEPING AT THIS TIME. BED ALARM ON. WILL CONTINUE TO MONITOR.
--- NOTE | 2018-08-04 03:30 | NUR ---
PT SET BED ALARM OFF, UPON ENTERING ROOM PT FOUND ON SIDE OF THE BED W/EMESIS ALL DOWN THE FRONT OF HIM AND ON HIS BED. PT ASSISTED TO RESTROOM. LARGE LOOSE STOOL IN BRIEF. PT CLEANED UP TO THE BEST THAT HE WOULD TOLERATE AND ALLOW. REDRESSED AND BEDDING CHANGED. PT UPRIGHT IN BED W/BED ALARM ON. CALL LIGHT AT SIDE AND EMESIS BAG PROVIDED.
--- NOTE | 2018-08-04 03:45 | NUR ---
PT CALLED OUT FOR HELP, UPON ENTERING ROOM, PT REPORTED FEELING LIKE HE MAY VOMIT. PT REMINDED OF EMESIS BAG AT SIDE, ASSISTED AND PROCEEDED TO VOMIT. PT MISSED BAG PARTIALLY AND BEDDING AND SHIRT CHANGED AGAIN. PT CLEANED UP AND ASSISTED TO THE CHAIR WHERE HE IS MORE UPRIGHT FOR SAFETY. ALARM PLACED TO PT. BLANKET PROVIDED.
[2018-08-04 05:00] VITALS: BP 138/53
--- NOTE | 2018-08-04 07:00 | NUR ---
REPORT RECEIVED FROM AMBER NOEL;PT APPEARS TO BE SLEEPING IN SUPINE POSITION;RESPIRATIONS APPEAR EVEN AND UNLABORED ON RA;NO S/S OF DISTRESS NOTED;ACCUCHECK 129, NO COVERAGE NEEDED AT THIS TIME;ALL FALL PRECAUTIONS IN PLACE WITH BED IN THE LOWEST POSITION AND BED ALARM ON FOR SAFETY;CALL LIGHT IN REACH;WILL CONTINUE TO MONITOR
--- NOTE | 2018-08-04 08:30 | NUR ---
AT BEDSIDE DISCUSSING POC.
--- NOTE | 2018-08-04 08:40 | NUR ---
PT RESTING IN BED, ALERT TO SELF ONLY;VS OBTAINED AND ASSESSMENT COMPLETED;PT DENIES ANY PAIN OR DISCOMFORTS,PAIN SCALE AND REPORTING EDUCATED;RESPIRATIONS EVEN AND UNLABORED ON RA;ABDOMEN DISTENDED/SOFT ON PALPATION AND ACTIVE IN ALL 4 QUADRANTS;STRONG PEDAL PULSES;SKIN INTACT;PT DENIES ANY ADDITIONAL NEEDS AND IS ENCOURAGED TO CALL FOR ASSISTANCE IF NEEDED;FALL PRECAUTIONS IN PLACE WITH BED ALARM ON FOR SAFETY;CALL LIGHT IN REACH;WILL CONTINUE TO MONITOR
[2018-08-04 08:41] VITALS: BP 141/66
--- NOTE | 2018-08-04 11:32 | NUR ---
PT AMBULATING THE HALLWAYS WITH PHYSICAL THERAPY.
--- NOTE | 2018-08-04 11:50 | NUR ---
PT OOB RESTING IN RECLINER WITH DAUGHTER AT BEDSIDE;RESPIRATIONS EVEN AND UNLABORED ON RA;PT DENIES ANY CURRENT NEEDS;ACCUCHECK 249, PT COVERED WITH NOVOLOG SLIDING SCALE PER ORDER;ALL FALL PRECAUTIONS REMAIN IN PLACE WITH BED ALARM ON FOR SAFETY;CALL LIGHT IN REACH;WILL CONTINUE TO MONITOR
--- NOTE | 2018-08-04 13:00 | NUR ---
Pt was seen for gait training x 15 mins. He refused to wear gait belt however agreed to use a rollator. He was able to ambulate at least 80 ft. x 4 with rollator and CGA. He demonstrated better posture and gait pattern. He safely returned to his room and sat down to recliner. Call bauman on the side within reach. Daughter in the room. [facility] raw score of 17 points suggestive of appropriateness for home health physical therapy.
[2018-08-04 15:53] VITALS: BP 113/79
--- NOTE | 2018-08-04 16:00 | NUR ---
PT RESTING IN SUPINE POSITION, CONFUSED;RESPIRATIONS EVEN AND UNLABORED ON RA;NO S/S OF DISTRESS NOTED;PT DENIES ANY CURRENT PAIN OR NEEDS;ENCOURAGED TO CALL FOR ASSISTANCE IF NEEDED;FALL PRECAUTIONS IN PLACE WITH BED ALARM ON FOR SAFETY;CALL LIGHT IN REACH;WILL CONTINUE TO MONITOR
[2018-08-04 19:48] VITALS: BP 107/50
--- NOTE | 2018-08-04 22:07 | NUR ---
PT MEDICATED ORDERS PROVIDE. NO S/O DISTRESS AT THIS TIME. BED ALARM ON AND CALL LIGHT IN PLACE AT SIDE.
--- NOTE | 2018-08-04 23:15 | NUR ---
PT SET BED ALARM OFF, PT IS WANDERING THE ROOM AND DIGGING THROUGH HIS CLOTHES/BELONGINGS. WHEN ASKED WHAT HE IS LOOKING FOR HE DENIES LOOKING FOR ANYTHING. WANDERS BACK TO THE BED TO LAY DOWN. SNACK PROVIDED. PT APPEARS SATISFIED. BED ALARM ON.
--- NOTE | 2018-08-05 02:50 | NUR ---
PT SLEEPING AT THIS TIME. NO S/O DISTRESS NOTED. CALL LIGHT AT SIDE AND BED ALARM ON
[2018-08-05 05:40] VITALS: BP 149/62
[2018-08-05 06:13] LABS: HEMOGLOBIN 11.6 g/dl (14.0-18.0); IMMATURE GRANULOCYTES 0.4 % (0.0-5.0); MEAN CELL VOLUME 92.6 fL CALC (80.0-100.0); MEAN CORPUSCULAR HGB 30.7 pG CALC (26.0-32.0); MEAN CORPUSCULAR HGB CONC 33.1 g/L CALC (32.0-36.0); NEUT# 7.37 thou/uL (1.82-7.42); RED BLOOD COUNT 3.78 mill/uL (4.70-6.10); RED CELL DISTRI WIDTH 13.5 % (11.5-15.5)
[2018-08-05 06:40] LABS: CREATININE 1.5 mg/dL (0.7-1.3); POTASSIUM 4.8 mmol/l (3.5-5.1)
--- NOTE | 2018-08-05 07:00 | NUR ---
RECIEVED REPORT FROM AMBER NOEL. ASSUMED PT CARE.
[2018-08-05 07:15] VITALS: BP 111/53
--- NOTE | 2018-08-05 07:15 | NUR ---
ASSESSMENT COMPLETE, PT RESTING IN BED, RESPIRATIONS EVEN/UNLABORED. BED ALARM INTACT. CALL LIGHT IN REACH, WILL MONITOR.
--- NOTE | 2018-08-05 07:45 | NUR ---
DR. SEGOVIA AT BEDSIDE FOR ASSESSMENT AND TO [place] PLAN OF CARE. DR. SEGOVIA REFERRED TO CM FOR PLACEMENT TODAY. WILL MONITOR.
[2018-08-05 08:52] VITALS: BP 111/53
--- NOTE | 2018-08-05 09:30 | NUR ---
PT ALARM SOUNDING , PT ASSISTED TO BATHROOM, REORIENTED TO CALL LIGHT AND NEED TO USE FOR SAFETY. PT FOUND INC OF BOWEL AND BLADDER, COMPLETE BATH AND GOOD CHRISTINE CARE GIVEN, LINENS CHANGED. PT TOLERATED WELL ABLE/WILLING TO FOLLOW INSTRUSTIONS AND CUES. PT THEN ASSISTED BACK TO BED, SLOW STEADY GAIT. BED ALARM INTACT. CALL LIGHT IN REACH. WILL MONITOR.
--- NOTE | 2018-08-05 11:15 | NUR ---
PT RESTING IN BED WITH EYES CLOSED, DAUGHTERS AT BEDSIDE. PT OFFERS NO COMPLAINTS AT THIS TIME. BED ALARM INTACT. CALL LIGHT IN REACH.
--- NOTE | 2018-08-05 11:56 | NUR ---
Mr. Sumner was in semi fowlers position upon entering room w/ daughter by his side. Pt. supine to sit (Independent), sit to stand (SBA) VC slightly for pt. to lock brakes on 4 wheeled RW. Pt. ambulated 200ft. (CGA) with no rest breaks with $wheeled RW, half way through instructed pt. stop and lock brakes, had difficlty locking left brake. Initiated ambulation pt. needed VC to unlock brakes. pt. stand to sit was (SBA) VC for correct hand placement, and correct way to lock breaks before descending to a seated position. Pt. was in chair with tray table and call bauman by his side. Daughter was in pt. room as exiting room.
--- NOTE | 2018-08-05 14:45 | NUR ---
REPORT CALLED TO ALEXANDRA AT [facility]. .
--- NOTE | 2018-08-05 14:49 | NUR ---
Discharge instructions given. Patient verbalizes understanding of same. Discharged in stable condition via Wheelchair to *Other with family. All belongings sent with pt.
== END 2018-08-05 14:45 | DRG 638 ==
LOC: ED 22:39 → EDBD 22:39 → ED 23:24 → ED-I 23:24 → ED 07-24 04:02 → ICU 07-24 04:03 → MS2 07-25 11:23
PROVIDERS: Emergency Medicine; Internal Medicine Nephrology; ADMIT Internal Medicine; ATTEND Internal Medicine Geriatric Medicine
PROC: 0T9B70Z Drainage of Bladder with Drainage Device, Via Natural or Artificial Opening (ICD-10-PCS; principal; 2018-07-24)
DX: E11.649 Type 2 diabetes mellitus with hypoglycemia without coma (principal); F03.91 Unspecified dementia, unspecified severity, with behavioral disturbance; T38.3X5A Adverse effect of insulin and oral hypoglycemic [antidiabetic] drugs, initial encounter; I12.9 Hypertensive chronic kidney disease with stage 1 through stage 4 chronic kidney disease, or unspecified chronic kidney disease; E11.22 Type 2 diabetes mellitus with diabetic chronic kidney disease; N18.3 Chronic kidney disease, stage 3 (moderate); D63.1 Anemia in chronic kidney disease; I25.10 Atherosclerotic heart disease of native coronary artery without angina pectoris; R33.9 Retention of urine, unspecified; Z79.4 Long term (current) use of insulin
CPT/HCPCS: J2060

== ENCOUNTER 2018-09-02 11:35 | Observation (INO) | payer MEDICARE ==
[~2018-09-02] VITALS: Ht 175.3 cm; Wt 55.6 kg
[~2018-09-02 11:35] MED LIST: ATENOLOL25 MG PO; BAYER ASPIRIN E81 MG PO; DONEPEZIL5 MG PO; NOVOLOG MIX SC; NOVOLOG MIX100 U/ML SC; PANTOPRAZOLE SO40 MG PO; PIOGLITAZONE HC15 MG PO; PIOGLITAZONE HC30 MG PO; PRANDIN1 MG PO; QUETIAPINE FUMA25 MG PO; SIMVASTATIN20 MG PO
--- NOTE | 2018-09-02 12:00 | NUR ---
PT TRANSPORTED TO [facility] VIA WC ACCOMPIANED BY DAUGHTER. PT ASSISTED IN TO BED BY PULLEY WORKER AND TUB ATTENDANT. VS DONE. PT ALERT TO SELF AT TIME. RESP EVEN AND UNLABORED. LUNG SOUNDS CLEAR. TELE IN PLACE. BOWEL SOUNDS ACTIVE X4. STRONG RADIAL AND PEDAL PULSES. #22 LFA NS @120. SITE APPEARS HEALTHY. PT APPEARS TO HAVE PAIN TO HIS LT SIDE. REPOSITIONED FOR COMFORT. LT HEEL PRESSURE ULCER NOTED. CLEANED W/ NS AND DRESSING APPLED; ABD PAD AND KERLIX. PT RESTING AT THIS TIME. BED ALARM APPLIED FOR SAFETY. CALL LIGHT IN REACH. WILL CONTINUE TO MONITOR.
[2018-09-02 12:10] VITALS: BP 120/65
--- NOTE | 2018-09-02 14:01 | NUR ---
2 PHELBOTOMY TECH ATTEMPTED TO RETRIEVE BLOOD FROM PT. BOTH UNSUCCESSFUL. AMBER PANG ATTEMPTED TO RETRIEVE BLOOD DURING NEW IV START UNSUCCESSFUL WELL. NEW PHELBOTOMY TECH WILL BE UP TO FLOOR SOON TO ATTEMPT BLOOD DRAW.
[2018-09-02 15:30] VITALS: BP 97/54
--- NOTE | 2018-09-02 18:15 | NUR ---
PT RESTING IN BED. NO C/O PAIN OR NEEDS. TELE IN PLACE. CALL LIGHT IN REACH. BED ALARM ON. WILL CONTINUE TO MONITOR.
[2018-09-02 18:17] LABS: CREATININE 1.9 mg/dL (0.7-1.3); POTASSIUM 4.4 mmol/l (3.5-5.1)
--- NOTE | 2018-09-02 18:33 | NUR ---
CARDINAL CALLED REGARDING NOVOLOG SLIDING SCALE. PHARMACIST TO PUT SLIDING SCALE IN SHORTLY.
[2018-09-02 18:54] VITALS: BP 94/51
--- NOTE | 2018-09-02 20:10 | NUR ---
PT. CLEANED OF A LARGE INCONTINENCE OF URINE;CBB AND LINENS CHANGED. PT. C/O GENERALIZED SORENESS WHEN TURNING, WILL CALL MD FOR FURTHER ORDERS. DRESSING IN PLACE TO LEFT HEEL; CDI; UNABLE TO ASSESS SITE. BILATERAL HEEL PROTECTORS IN PLACE. URINAL PLACED TO PENIS TO ATTEMPT TO GET URINE SAMPLE PT. IS INCONTINENT. IV SITE PATENT AND ORDERED IVF INFUSING.ASSESSMENT COMPLETED. BED ALARM SET FOR SAFETY PRECAUTIONS. RE-EDUCATED ON HOW TO USE CALL LIGHT AND PLACED AN ELECTRODE ON NURSE BUTTON SO PT. CAN FEEL WHERE TO PRESS IF NEEDING STAFF, DUE TO HIM BEING BLIND. CALL LIGHT IS IN REACH. WILL CONTINUE TO MONITOR.
--- NOTE | 2018-09-02 20:25 | NUR ---
CALLED DR. SEGOVIA AND NOTIFIED HIM OF PT. MOANING IN PAIN WITH MOVEMENT AND C/O SORENESS, NEW ORDERS RECEIVED AND TO BE CARRIED OUT.
[2018-09-03] VITALS: BP 112/54
--- NOTE | 2018-09-03 00:30 | NUR ---
PT. CLEANED OF A MODERATE INCONTINENCE OF URINE.ATTEMPTED TO GET URINE SAMPLE VIA STRAIGHT CATHETER AND UNSUCCESSFUL AT THIS TIME. PT. IS NOT COOPERATIVE WITH STAFF. WILL ATTEMPT TO GET SAMPLE AGAIN BY PLACING URINAL TO PENIS DUE TO PT. BEING INCONTINENT. REPOSITIONED PT. OFFERED PO FLUIDS. ENCOURAGED TO CALL FOR ANY NEEDS. CALL LIGHT IS IN REACH. BED ALARM IS ON.
--- NOTE | 2018-09-03 01:40 | NUR ---
OBTAINED UA PER ORDER FROM URINAL.
[2018-09-03 01:57] LABS: URINE BILIRUBIN - DIPSTICK NEGATIVE (NEGATIVE); URINE BLOOD DIPSTICK NEGATIVE (NEGATIVE); URINE COLOR YELLOW; URINE GLUCOSE - DIPSTICK NEGATIVE (NEGATIVE); URINE KETONE NEGATIVE (NEGATIVE); URINE LEUK ESTERASE NEGATIVE (Negative); URINE NITRITE - DIPSTICK NEGATIVE (Negative); URINE PH 5.5 (4.5-8.0); URINE PROTEIN - DIPSTICK TRACE mg/dL (NEG-TRACE); URINE SPECIFIC GRAVITY 1.015; URINE UROBILINOGEN - DIPSTICK 0.2 E.U./dL (0.2)
[2018-09-03 01:58] LABS: URINE CLARITY CLEAR
[2018-09-03 04:17] VITALS: BP 92/53
--- NOTE | 2018-09-03 04:17 | NUR ---
VSS. NO DISTRESS NOTED. REMAINS CONFUSED AND ON BED ALARM. CALL LIGHT IS IN REACH. PO FLUIDS OFFERED. CALL LIGHT IS IN REACH.
--- NOTE | 2018-09-03 05:56 | NUR ---
SPOKE WITH MD AND RECEIVED ORDERS FOR AM LABS.
[2018-09-03 06:06] LABS: HEMOGLOBIN 10.4 g/dl (14.0-18.0); IMMATURE GRANULOCYTES 0.4 % (0.0-5.0); MEAN CELL VOLUME 96.8 fL CALC (80.0-100.0); MEAN CORPUSCULAR HGB 30.5 pG CALC (26.0-32.0); MEAN CORPUSCULAR HGB CONC 31.5 g/L CALC (32.0-36.0); NEUT# 7.69 thou/uL (1.82-7.42); RED BLOOD COUNT 3.41 mill/uL (4.70-6.10); RED CELL DISTRI WIDTH 13.4 % (11.5-15.5)
[2018-09-03 06:10] LABS: ALBUMIN 3.2 g/dL (3.2-5.0); CREATININE 1.6 mg/dL (0.7-1.3); POTASSIUM 4.3 mmol/l (3.5-5.1); TOTAL PROTEIN 6.5 g/dL (6.3-8.2)
[2018-09-03 06:31] LABS: BILIRUBIN, TOTAL 0.5 mg/dL (0.0-1.4)
--- NOTE | 2018-09-03 06:45 | NUR ---
PT REPORT RECIEVED FROM AMBER BENJAMIN. PT SLEEPING. NO S/S OF DISTRESS. CALL LIGHT IN REACH. WILL CONTINUE TO MONITOR.
[2018-09-03 07:48] VITALS: BP 97/60
--- NOTE | 2018-09-03 07:48 | NUR ---
PT CONFUSED. SPEECH IS CLEAR. RESP EVEN AND UNLABORED. LUNG SOUNDS CLEAR/DIMINISHED. TELE IN PLACE. BOWEL SOUNDS ACTIVE X4. STRONG RADIAL AND PEDAL PULSES. #22 LFA NS @120. SITE APPEARS HEALTHY. PT HAS REDNESS TO SCROTAL AREA W/ SMALL OPENINGS NOTED. SLIGHT REDNESS TO BUTTOCK. BARRIER CREAM APPLIED. LT HEEL PRESSURE ULCER NOTED. SCANT SEROSANGUINOUS DRAINAGE. CLEANED W/ SALINE. AQUACEL FOAM PAD APPLIED. HEEL PROTECTORS IN PLACE. PT DENIES ANY PAIN OR NEEDS. POC DISCUSSED. SAFETY PRECAUTIONS IN PLACE. BED ALARM ON. CALL LIGHT IN REACH. WILL CONTINUE TO MONITOR.
[2018-09-03 10:25] VITALS: BP 109/61
[2018-09-03] MEDS ORDERED: NITROSTAT0.4 MG SL (10:43)
[2018-09-03] MEDS ORDERED: DEPAKOTE SPRIN125 MG PO (10:43)
[2018-09-03] MEDS ORDERED: NOVOLOG MIX100 U/ML SC ×2 (10:45→10:46)
--- NOTE | 2018-09-03 12:13 | NUR ---
PT SITTING UP IN BED EATING LUNCH. NO C/O PAIN OR NEEDS. TELE IN PLACE. CALL LIGHT IN REACH. BED ALARM ON. WILL CONTINUE TO MONITOR.
[2018-09-03 14:30] VITALS: BP 114/53
--- NOTE | 2018-09-03 16:23 | NUR ---
PT WATCHING TELEVISION. NO C/O PAIN OR NEEDS. CALL LIGHT IN REACH. WILL CONTINUE TO MONITOR.
[2018-09-03 19:05] VITALS: BP 119/60
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
--- NOTE | 2018-09-04 03:47 | NUR ---
PT CONFUSED, YELLING OUT ATTEMPTING TO REMOVE IV, INSTRUCTED PT TO NOT REMOVE IV. COVERED WITH TUBULAR NETTING. BED ALARM FOR SAFETY, CALL LIGHT IN REACH,CONTINUE TO MONITOR.
[2018-09-04 03:49] VITALS: BP 144/67
[2018-09-04 05:56] LABS: HEMATOCRIT 34.2 % (39.0-50.0); HEMOGLOBIN 10.8 g/dl (14.0-18.0); IMMATURE GRANULOCYTES 0.5 % (0.0-5.0); MEAN CELL VOLUME 96.1 fL CALC (80.0-100.0); MEAN CORPUSCULAR HGB 30.3 pG CALC (26.0-32.0); MEAN CORPUSCULAR HGB CONC 31.6 g/L CALC (32.0-36.0); NEUT# 8.46 thou/uL (1.82-7.42); RED BLOOD COUNT 3.56 mill/uL (4.70-6.10); RED CELL DISTRI WIDTH 13.2 % (11.5-15.5)
[2018-09-04 06:16] LABS: ANION GAP 14 (6-22 (CALC)); BUN 31 mg/dL (8-23); BUN/CREATININE RATIO 26 (12-20 (CALC)); CARBON DIOXIDE 23 mmol/l (22-30); CHLORIDE 112 mmol/l (95-108); CREATININE 1.2 mg/dL (0.7-1.3); GFR 58 ML/MIN (>=60 (CALC)); GFR FOR AFR.AMER. > 60 ML/MIN (>=60 (CALC)); POTASSIUM 4.2 mmol/l (3.5-5.1); SODIUM 145 mmol/l (137-146)
--- NOTE | 2018-09-04 06:18 | NUR ---
PT IN BED YELLING OUT, C/O PAIN TO L LEG. MEDICATED WITH ULTRAM. CALL LIGHT IN REACH, BED ALARM FOR SAFETY. CONTINUE TO MONITOR.
[2018-09-04 08:19] VITALS: BP 126/60
--- NOTE | 2018-09-04 08:19 | NUR ---
PT CONFUSED. RESP EVEN AND UNLABORED. LUNG SOUNDS CLEAR/DMINISHED. BOWEL SOUNDS ACTIVE X4. STRONG RADIAL AND PEDAL PULSES. #22 LFA 1/2 NS @75. SITE APPEARS HEALTHY. MILD REDNESS TO COCCYX AND HEELS. LT HEEL DRESSING REMOVED. SCANT AMOUNT OF SEROSANGUINOUS DRAINAGE NOTED. CLEANED W/ SALINE. AQUACEL FOAM PAD APPLIED. PILLOW UNDER BOTH HEELS TO DECREASE PRESSURE. PT DENIES ANY PAIN OR NEEDS. POC DISCUSSED. SAFETY PRECAUTIONS IN PLACE. BED ALARM ON. CALL LIGHT IN REACH. WILL CONTINUE TO MONITOR.
--- NOTE | 2018-09-04 11:45 | NUR ---
PT SLEEPING IN BED. NO C/O PAIN OR NEEDS. CALL LIGHT IN REACH. BED ALARM ON. WILL CONTINUE TO MONITOR.
[2018-09-04 14:30] VITALS: BP 108/57
--- NOTE | 2018-09-04 15:18 | NUR ---
PT IV INFILTRATED. PT REFUSING TO LET MYSELF OR AMBER FORBES INSERT NEW IV. DR. SEGOVIA MADE AWARE. NO NEW IV AT THIS TIME.
--- NOTE | 2018-09-04 15:45 | NUR ---
PT RESTING IN BED. NOC/O PAIN OR NEEDS. BED ALARM ON. CALL LIGHT IN REACH. WILL CONTINUE TO MONITOR.
[2018-09-04 18:47] VITALS: BP 123/64
--- NOTE | 2018-09-04 19:16 | NUR ---
PT RESTING IN BED, NO SIGNS OF DISTRESS NOTED, RESP EVEN AND UNLABORED. PT ALERT TO SELF, CONFUSED. BED ALARM FOR SAFETY. ATTEMPTED TO DISCUSS POC, NEEDS REINFORCMENT. DRESSING TO L HEEL CDI, HEEL PROTECTORS IN PLACE. PT CHANGED OF INCONTINENCE, BARRIER CREAM APPLIED. SEE CHART FOR PHOTOS OF SKIN TEARS TO COCCYX. ASSESSMENT COMPLETED, CALL LIGHT IN REACH,BED ALARM X1,CONTINUE TO MONITOR.
--- NOTE | 2018-09-05 00:20 | NUR ---
ASSISTED AIRLINE MANAGERIAL SUPERVISOR TO CHANGE PT OF INCONTINENCE OF BOWEL AND BLADDER. PT C/O PAIN TO L FOOT. CHANGED GOWN, AND MEDICATED WITH ULTRAM FOR PAIN. BED ALARM FOR SAFETY, CALL LIGHT IN REACH,CONTINUE TO MONITOR.
[2018-09-05 04:00] VITALS: BP 130/71
--- NOTE | 2018-09-05 04:00 | NUR ---
PT RESTING IN BED, NO SIGN OF DISTRESS NOTED,RESP EVEN AND UNLABORED. CALL LIGHT IN REACH, BED ALARM FOR SAFETY, CONTINUE TO MONITOR.
--- NOTE | 2018-09-05 06:50 | NUR ---
REPORT RECEIVED FROM DEBORA BROWN; PT LAYING IN BED AWAKE, RESP EVEN AND UNLABORED; BED ALARM ACTIVE; CALL GARCIA IN REACH;.
[2018-09-05 08:33] VITALS: BP 118/60
--- NOTE | 2018-09-05 11:37 | NUR ---
PT HAD MOD INCONT URINE AND STOOL; CHRISTINE CARE PROVIDED BY TONNAGE COMPILATION CLERK'S, BARRIER CREAM APPLIED; LEGS ELEVATED ON PILLOW; HOB ELEVATED; MEDICATED PER EMAR; BED ALARM ACTIVE; CALL GARCIA IN REACH.
[2018-09-05 14:40] VITALS: BP 117/60
--- NOTE | 2018-09-05 17:24 | NUR ---
PT LAYING IN BED, TIGHT BARREL INSPECTOR'S AT BEDSIDE PROVIDING CHRISTINE CARE; PT SEEMS CALM AND COMPERATIVE AT THE MOMENT; DAUGHTER (DELANEY TELE [phone]) AT BEDSIDE; DELANEY STATES PT WILL BE GOING TO [facility] ([phone]) TOMORROW. CALL GARCIA IN REACH; BED ALARM ACTIVE.
--- NOTE | 2018-09-05 19:30 | NUR ---
PATIENT RESTING IN BED-RESPONDS WHEN SPOKEN TO OPENS HIS EYES. ORIENTED TO PERSON ONLY. BED ALARM IN PLACE. CALL LLIGHT IN REACH. WILL CONT TO MONITOR.
[2018-09-05 19:36] VITALS: BP 124/62
--- NOTE | 2018-09-05 22:16 | NUR ---
PATIENT RESTING IN BED-ORIENTED TO SELF ONLY. INCONT OF BOWEL AND BLADDER. PATIENT PROVIDED WITH PERSONAL CARE AND LINEN CHANGED. BARRIER CREAM APPLIED TO APPROPRIATE AREAS. DRESSING TO LEFT HEEL IS CDI AT THIS TIME. PATIENT TURNED AND REPOSITIONED. BED ALARM IN PLACE FOR PATIENT SAFETY. CALL LIGHT IN REACH. WILL CONT TO MONITOR.
--- NOTE | 2018-09-06 01:49 | NUR ---
PATIENT INCONT OF URINE AND SMALL BROWN PASTY STOOL. PATIENT PROVIDED WITH PERSONAL CARE AND BARRIER CREAM APPLIED. BED ALARM IN PLACE. CALL LIGHT IN REACH. WILL CONT TO MONITOR.
[2018-09-06 04:14] VITALS: BP 130/77
--- NOTE | 2018-09-06 04:43 | NUR ---
PATIENT INCONT OF URINE. PATIENT WAS PROVIDED WITH PERSONAL CARE AND BARRIER CREAM APPLIED TO BUTTOCKS AND COCCYX AREA. BED ALARM REMAINS IN PLACE FOR PATIENT SAFETY. CALL LIGHT IN REACH. WILL CONT TO MONITOR.
[2018-09-06 07:37] VITALS: BP 115/64
--- NOTE | 2018-09-06 07:42 | NUR ---
PT APPEARS TO BE SLEEPING BUT EASILY AWAKENS WHEN SPOKEN TO; AM MEDS ADMINISTERED; TOLERATED WELL; ALERT TO SELF; DRESSING TO LT HEEL CDI;BED ALARM ACTIVE; PT NOW EATING BREAKFAST; CALL GARCIA IN REACH;
[2018-09-06 08:40] VITALS: BP 115/64
--- NOTE | 2018-09-06 11:15 | NUR ---
PT REPOSITION IN BED, CHRISTINE CARE GIVEN DUE TO INCONTINENT VOID; ALSO VOIDED IN URINAL 50CC CLEAR YELLOW URINE; PT VERY PLESANT AND COOPERATIVE WITH ADL; SEEMS MORE ALERT, ABLE TO GIVE CORRECT AND NAME; VOICE NO CONCERNS; CALL GARCIA IN REACH; BED ALARM ACTIVE.
--- NOTE | 2018-09-06 15:00 | NUR ---
PT'S DAUGHTER (DELANEY) SIGNED D/C PAPERS; CHRISTINE CARE PROVIDED; ASSISTED PT WITH DRESSING; PT LEFT IN HIS PERSONAL W/C IN STABLE CONDITION ACCOMPANIED BY FAMILY MEMBERS TO [facility] [place] [phone]
--- NOTE | 2018-09-06 15:08 | NUR ---
Discharge instructions given. Patient verbalizes understanding of same. Discharged in stable condition via Wheel[facility] to [facility] with family. All belongings sent with pt.
== END 2018-09-06 16:45 ==
LOC: MS2 11:35
PROVIDERS: ADMIT Internal Medicine Geriatric Medicine; ATTEND Internal Medicine Geriatric Medicine
DX: F03.90 Unspecified dementia, unspecified severity, without behavioral disturbance, psychotic disturbance, mood disturbance, and anxiety (principal); E11.649 Type 2 diabetes mellitus with hypoglycemia without coma; E11.22 Type 2 diabetes mellitus with diabetic chronic kidney disease; I12.9 Hypertensive chronic kidney disease with stage 1 through stage 4 chronic kidney disease, or unspecified chronic kidney disease; N18.9 Chronic kidney disease, unspecified; L89.621 Pressure ulcer of left heel, stage 1; I25.10 Atherosclerotic heart disease of native coronary artery without angina pectoris; E78.5 Hyperlipidemia, unspecified; F32.9 Major depressive disorder, single episode, unspecified; R33.9 Retention of urine, unspecified; L53.9 Erythematous condition, unspecified; M19.90 Unspecified osteoarthritis, unspecified site